=== PATIENT | female | born 1975 ===

== ENCOUNTER 2022-02-12 13:44 | Outpatient (CLI) | payer BC | END 2022-02-12 13:45 | disposition home or self-care (01) | LOC: BICMAMMO 13:44 | PROVIDERS: ATTEND Internal Medicine | DX: Z12.31 Encounter for screening mammogram for malignant neoplasm of breast (principal); E04.1 Nontoxic single thyroid nodule; N28.1 Cyst of kidney, acquired | CPT/HCPCS: 76536; 76770; 77063; 77067 ==